=== PATIENT | female | born 1975 | race African-American/Black ===

== ENCOUNTER 2021-04-18 02:00 | Emergency (ER) | payer OTHER ==
[2021-04-18 02:24] VITALS: BP 155/90; PULSE 84; TEMP 98.6; BMI 34.1
[2021-04-18] MEDS ORDERED: ACETAMINOPHEN 325 MG TABLET (FP) PO ONE (03:17)
[2021-04-18] MEDS ORDERED: ACETAMINOPHEN 325 MG TABLET (FP) ONE (03:23)
== END 2021-04-18 05:49 | disposition home or self-care (01) ==
LOC: JER 02:00
PROC: 0HQ1XZZ Repair Face Skin, External Approach (ICD-10-PCS; principal; 2021-04-18)
DX: S01.81XA Laceration without foreign body of other part of head, initial encounter (principal); Y00.XXXA Assault by blunt object, initial encounter
CPT/HCPCS: 12011-25; 70486-TC; 99284-25

== ENCOUNTER 2021-04-25 18:41 | Emergency (ER) | payer OTHER ==
[2021-04-25 18:44] VITALS: BP 141/61; PULSE 78; BMI 34.1
== END 2021-04-25 19:52 | disposition home or self-care (01) ==
LOC: JERFT 18:41
DX: Z48.02 Encounter for removal of sutures (principal)
CPT/HCPCS: 99281-25